=== PATIENT | female | born 2000 | race Caucasian/White ===

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

== ENCOUNTER → 2021-07-31 11:40 | Outpatient (CLI) | payer BC, OTHER, SELFPAY ==
[2021-07-31 15:27] LABS: COVID19 -Nasal RAPID Negative (Negative)
== END ==
PROVIDERS: PCP Pediatrics; Referring Provider Physician Assistant; Visit Provider Physician Assistant
DX: Z20.822 Contact with and (suspected) exposure to COVID-19 (principal); J02.9 Acute pharyngitis, unspecified; R52 Pain, unspecified
CPT/HCPCS: 87635

== ENCOUNTER → 2022-02-22 17:47 | Outpatient (CLI) | payer BC, OTHER, SELFPAY ==
--- NOTE | 2022-02-22 17:55 | DI.RAD.S_ITS ---
PROCEDURE: XR FOOT LT MIN 3V INDICATIONS: left foot pain TECHNIQUE: 3 views of the foot were acquired. COMPARISON: None. FINDINGS: Bones: No fractures or dislocations. No suspicious bony lesions. Soft tissues: No tibiotalar joint effusion. Achilles tendon appears normal. IMPRESSION: Unremarkable radiographic examination of left foot. Dictated by: Dougie Reina M.D. on 02/22/2022 at 18:15 Approved by: Dougie Reina M.D. on 02/22/2022 at 18:15
== END ==
PROVIDERS: Referring Provider Nurse Practitioner Family; Visit Provider Nurse Practitioner Family
DX: M79.672 Pain in left foot (principal)
CPT/HCPCS: 73630

== ENCOUNTER → 2023-02-20 16:42 | Outpatient (CLI) | payer BC, SELFPAY ==
--- NOTE | 2023-02-20 17:14 | DI.RAD.S_ITS ---
PROCEDURE: XR RIBS RT MIN 3V W CXR 1V INDICATIONS: rt rib pain;extra rib on right side TECHNIQUE: 2 views of the right ribs were acquired, along with a single view chest. COMPARISON: None. FINDINGS: Surgical changes and devices: None. Bones and chest wall: No fractures or dislocations. No suspicious bony lesions. Overlying soft tissues appear unremarkable. Lungs and pleura: No pleural effusions or pneumothorax. Lungs appear clear. Mediastinum: Mediastinal contours appear normal. Heart size is normal. IMPRESSION: No gross displaced right rib fracture. No acute cardiopulmonary pathology. Dictated by: Dougie Reina M.D. on 02/21/2023 at 15:32 Approved by: Dougie Reina M.D. on 02/21/2023 at 15:32
== END ==
PROVIDERS: PCP Internal Medicine; Referring Provider Internal Medicine; Visit Provider Internal Medicine
DX: R07.81 Pleurodynia (principal)
CPT/HCPCS: 71101

== ENCOUNTER → 2023-08-30 16:55 | Outpatient (CLI) | payer BC, SELFPAY ==
[2023-08-30 17:20] LABS: Hematocrit 40.6 % (36-46); Hemoglobin 13.9 g/dL (12.0-16.0); Mean Corpuscular HGB Conc 34.3 % (30-36); Mean Corpuscular Hemoglobin 30.9 PG (26-34); Mean Corpuscular Volume 89.9 fL (80-100); Platelet Count 229 X10^3/uL (150-400); Red Blood Cell Count 4.51 X10^6/uL (4.0-5.2); Red Cell Distribution Width 13.1 % (11.6-14.8); White Blood Cell Count 7.2 X10^3/uL (4.5-11.0)
[2023-08-30 17:42] LABS: Erythrocyte Sedimentation Rate 14 MM/HR (0-20)
[2023-08-30 17:52] LABS: Alanine Aminotransferase 27 IU/L (<35); Albumin 4.4 g/dL (3.5-5.0); Albumin Globulin Ratio 1.5 (1.0-2.8); Alkaline Phosphatase 67 U/L (38-126); Aspartate Aminotransferase 25 IU/L (14-36); BUN Creatinine Ratio 17.5 (6-22); Bilirubin Total 0.5 mg/dL (0.2-1.3); Blood Urea Nitrogen 14 mg/dL (7-17); C-Reactive Protein Quant < 0.5 mg/dL (<1.0); Calcium 10.1 mg/dL (8.4-10.2); Carbon Dioxide 30 mmol/L (22-32); Chloride 103 mmol/L (98-107); Estimated Glomerular Filt Rate > 60 mL/min (>60); Glucose 98 mg/dL (70-100); HEMOLYSIS < 15 (0-50); Potassium 4.2 mmol/L (3.4-5.1); Sodium 139 mmol/L (137-145); Total Protein 7.4 g/dL (6.3-8.2)
[2023-09-04 17:56] LABS: ANA Screen, IFA Negative (.)
== END ==
PROVIDERS: PCP Internal Medicine; Referring Provider Internal Medicine; Visit Provider Internal Medicine
DX: M32.9 Systemic lupus erythematosus, unspecified (principal)
CPT/HCPCS: 36415; 80053; 85027; 85651; 86038; 86140

== ENCOUNTER 2023-11-06 14:30 | Emergency (ER) | payer BC, SELFPAY ==
[2023-11-06 14:50] VITALS: BP 142/76; PULSE 124; RESP 16; TEMP 37.1; O2SAT 99; BMI 20.7
--- NOTE | 2023-11-06 15:13 | DI.RAD.S_ITS ---
PROCEDURE: XR TIBIA FUBULA RT 2V INDICATIONS: fall, pain, deformity TECHNIQUE: 2 views of the tibia and fibula were acquired. COMPARISON: [facility], CR, XR FOOT RT MIN 3V, 11/06/2023, 15:16. [facility], CR, XR ANKLE RT MIN 3V, 11/06/2023, 15:16. FINDINGS: Bones: Mildly displaced comminuted distal fibular fracture. Tibiotalar joint space is maintained. There is no gross widening at the syndesmosis. Soft tissues: No suspicious soft tissue calcifications or masses. IMPRESSION: Mildly displaced comminuted distal fibular fracture. Dictated by: Luli Bazan M.D. on 11/06/2023 at 15:48 Approved by: Luli Bazan M.D. on 11/06/2023 at 15:50
--- NOTE | 2023-11-06 15:13 | DI.RAD.S_ITS ---
PROCEDURE: XR FOOT RT MIN 3V INDICATIONS: fall, pain, deformity TECHNIQUE: 3 views of the foot were acquired. COMPARISON: [facility], CR, XR FOOT LT MIN 3V, 02/22/2022, 17:43. [facility], CR, XR ANKLE RT MIN 3V, 11/06/2023, 15:16. FINDINGS: Bones: Comminuted minimally displaced distal fibular fracture.. No suspicious bony lesions. Soft tissues: No tibiotalar joint effusion. Achilles tendon appears normal. IMPRESSION: Comminuted minimally displaced distal fibular fracture. Dictated by: Luli Bazan M.D. on 11/06/2023 at 15:47 Approved by: Luli Bazan M.D. on 11/06/2023 at 15:48
--- NOTE | 2023-11-06 15:13 | DI.RAD.S_ITS ---
PROCEDURE: XR ANKLE RT MIN 3V INDICATIONS: fall, pain, deformity TECHNIQUE: 3 views of the ankle were acquired. COMPARISON: [facility], CR, XR FOOT RT MIN 3V, 11/06/2023, 15:16. [facility], CR, XR TIBIA FIBULA RT 2V, 11/06/2023, 15:16. FINDINGS: Bones: Mildly displaced comminuted distal fibular fracture. No gross widening at the syndesmosis. Soft tissues: No tibiotalar joint effusion. Achilles tendon appears normal. IMPRESSION: Mildly displaced comminuted distal fibular fracture. Dictated by: Luli Bazan M.D. on 11/06/2023 at 15:50 Approved by: Luli Bazan M.D. on 11/06/2023 at 15:50
[2023-11-06] MEDS: ACETAMINOPHEN 325 MG TABLET 975 MG PO (15:16)
--- NOTE | 2023-11-06 15:17 | ED_ITS ---
HPI - Extremity Injury (Lower) <Luanne Davenport PA-C - Last Filed: 11/07/23 19:35> General Chief Complaint: Extremity Injury, Lower Stated Complaint: fell, r ankle injury Time Seen by Provider: 11/06/23 15:10 Mode of arrival: Family Vehicle History of Present Illness HPI Narrative: 22-year-old female hx of hypermobile joints, chillblains. presents with concern for severe right ankle pain nonambulatory since she slipped and fell recently when she was running to her car across her sloped driveway. She had her right foot on the uphill side and was wearing tennis shoes. She is here today with her mother. States she can not move her toes, unsure if this is due to pain or inability to do so. She does note that her right middle toe has a purplish appearance which is baseline and normal for her that is unchanged. Patient states she has not attempted to bear weight on the foot/ankle since this happened. She endorses pain in her foot ankle and lower leg; mostly of her right ankle. She denies knee pain. She denies hitting her head loss of consciousness or any other injury. No hx of previous fracture or injury to right ankle. Patient denies any chance of . Related Data Previous Rx's Medication Instructions Recorded levonorgestrel 14 mcg/24 hrs (3 1 device intrauterine ONCE #1 ea 04/01/23 yrs) 13.5 mg intrauterine device (Demetrice) hydroxyzine HCl 25 mg tablet 25 mg PO DAILY PRN itching #90 tabs 06/19/23 methylphenidate HCl 36 mg 72 mg (2 x 36 mg) PO DAILY #60 tabs 08/30/23 tablet,extended release 24 hr methylphenidate HCl 36 mg 72 mg (2 x 36 mg) PO DAILY #60 tabs 08/30/23 tablet,extended release 24 hr methylphenidate HCl 36 mg 72 mg (2 x 36 mg) PO DAILY #60 tabs 08/30/23 tablet,extended release 24 hr Allergies Allergy/AdvReac Type Severity Reaction Status Date / Time banana [BANANA] Allergy Mild Verified 11/06/23 15:06 yanely Allergy Mild rash/itchy Verified 11/06/23 15:06 throat melon [MELON] Allergy Mild rash/itchy Verified 11/06/23 15:06 throat watermelon Allergy Mild rash/itchy Verified 11/06/23 15:06 throat kiwi Allergy Mild Uncoded 11/06/23 15:06 Review of Systems <Luanne Davenport PA-C - Last Filed: 11/07/23 19:35> Review of Systems Narrative: See HPI Patient History <Luanne Davenport PA-C - Last Filed: 11/07/23 19:35> Medical History Chilblain Chronic low back pain Eczema Acne (~2020) Major depressive disorder Attention deficit hyperactivity disorder (ADHD), 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 Well-developed patient, in mild distress. HEAD: Atraumatic. Normocephalic. EYES: Pupils equal round and reactive. Extraocular motions intact. No scleral icterus. No injection or drainage. ENT: Nose without bleeding, purulent drainage. Airway patent. NECK: Trachea midline. Non tender CARDIOVASCULAR: Regular rate and rhythm without murmurs, gallops, or rubs. RESPIRATORY: Clear to auscultation. Breath sounds equal bilaterally. No wheezes, rales, or rhonchi. GASTROINTESTINAL: Abdomen soft, non-tender, nondistended. EXTREMITIES: ROM of the ankle and toes of the right affected foot is extremely reduced 2nd to pain and swelling. There is significant swelling about the lateral malleolus and ankle, patient has tenderness with palpation of the proximal fibula increasing with palpation inferiorly. Significant tenderness with palpation of the lateral malleolus. There is no erythema or broken skin or tenting. No other edema or joint tenderness. Sensation is intact, pedal pulses are intact. BACK: Nontender without deformity or crepitance. No flank tenderness. NEURO: AOx3. SKIN: No rash or erythema of visible areas Initial Vital Signs Initial Vital Signs: Vital Signs Temperature 98.7 F 11/06/23 14:50 Pulse Rate 124 H 11/06/23 14:50 Respiratory Rate 16 11/06/23 14:50 Blood Pressure 142/76 H 11/06/23 14:50 Pulse Oximetry 99 11/06/23 14:50 Oxygen Delivery Method Room Air 11/06/23 14:50 <Betty Sotelo DO - Last Filed: 11/09/23 07:50> Initial Vital Signs Initial Vital Signs: Vital Signs Temperature 98.7 F 11/06/23 14:50 Pulse Rate 124 H 11/06/23 14:50 Respiratory Rate 16 11/06/23 14:50 Blood Pressure 142/76 H 11/06/23 14:50 Pulse Oximetry 99 11/06/23 14:50 Oxygen Delivery Method Room Air 11/06/23 14:50 Course <Luanne Davenport PA-C - Last Filed: 11/07/23 19:35> Orders Ordered: Discontinued Medications Acetaminophen (Acetaminophen 325 Mg Tablet) 975 mg PO NOW ONE Stop: 11/06/23 15:12 Last Admin: 11/06/23 15:16 Dose: 975 mg Documented By: SUE Ibuprofen (Ibuprofen 400 Mg Tablet) 400 mg PO NOW ONE Stop: 11/06/23 15:12 Last Admin: 11/06/23 15:16 Dose: Not Given Documented By: SUE Ketorolac Tromethamine (Ketorolac 30 Mg/Ml Vial) 30 mg IM NOW ONE Stop: 11/06/23 15:16 Last Admin: 11/06/23 15:21 Dose: 30 mg Documented By: SUE Consultations Consultation #1: Spoke with Dr. Velarde, orthopedic on-call who states this may be surgical but unsure yet, agrees with plan for sugar-tong with posterior slab and crutches and will see her in clinic. 1605 Vital Signs Vital signs: Vital Signs - 8 hr 11/06/23 14:50 11/06/23 17:14 Temperature 98.7 F Pulse Rate 124 H 106 H Respiratory Rate 16 20 Blood Pressure 142/76 H 134/77 Pulse Oximetry 99 100 Oxygen Delivery Method Room Air Room Air <Betty Sotelo DO - Last Filed: 11/09/23 07:50> Orders Ordered: Discontinued Medications Acetaminophen (Acetaminophen 325 Mg Tablet) 975 mg PO NOW ONE Stop: 11/06/23 15:12 Last Admin: 11/06/23 15:16 Dose: 975 mg Documented By: RL Ibuprofen (Ibuprofen 400 Mg Tablet) 400 mg PO NOW ONE Stop: 11/06/23 15:12 Last Admin: 11/06/23 15:16 Dose: Not Given Documented By: RL Ketorolac Tromethamine (Ketorolac 30 Mg/Ml Vial) 30 mg IM NOW ONE Stop: 11/06/23 15:16 Last Admin: 11/06/23 15:21 Dose: 30 mg Documented By: RL Vital Signs Vital signs: Vital Signs - 8 hr 11/06/23 14:50 11/06/23 17:14 Temperature 98.7 F Pulse Rate 124 H 106 H Respiratory Rate 16 20 Blood Pressure 142/76 H 134/77 Pulse Oximetry 99 100 Oxygen Delivery Method Room Air Room Air MDM - Extremity Injury (Lower) <Luanne Davenport PA-C - Last Filed: 11/07/23 19:35> Differential Diagnosis Differential diagnosis: Likely ankle sprain and strain and ankle fracture Imaging Data Extremity x-ray #1: My Impression: Agree with Radiology interpretation Radiologist's Impression: [address] [address] XRay Report Signed Patient: Aster Palma MR#: [id number] : 2000 Acct:[id number] Age/Sex: 22 / F Date of Service: 11/06/23 Loc: ED Accession Number: [id number] Procedure: XR ankle RT min 3V Ordering Provider: Luanne Davenport P.A-C PROCEDURE: XR ANKLE RT MIN 3V INDICATIONS: fall, pain, deformity TECHNIQUE: 3 views of the ankle were acquired. COMPARISON: [facility], CR, XR FOOT RT MIN 3V, 11/06/2023, 15:16. [facility], CR, XR TIBIA FIBULA RT 2V, 11/06/2023, 15:16. FINDINGS: Bones: Mildly displaced comminuted distal fibular fracture. No gross widening at the syndesmosis. Soft tissues: No tibiotalar joint effusion. Achilles tendon appears normal. IMPRESSION: Mildly displaced comminuted distal fibular fracture. Dictated by: Luli Bazan M.D. on 11/06/2023 at 15:50 Approved by: Luli Bazan M.D. on 11/06/2023 at 15:50 Extremity x-ray #2: My Impression: Agree with Radiology interpretation Radiologist's Impression: [address] [address] XRay Report Signed Patient: Aster Palma MR#: [id number] : 2000 Acct:[id number] Age/Sex: 22 / F Date of Service: 11/06/23 Loc: ED Accession Number: [id number] Procedure: XR foot RT min 3V Ordering Provider: Luanne Davenport P.A-C PROCEDURE: XR FOOT RT MIN 3V INDICATIONS: fall, pain, deformity TECHNIQUE: 3 views of the foot were acquired. COMPARISON: [facility], CR, XR FOOT LT MIN 3V, 02/22/2022, 17:43. [facility], CR, XR ANKLE RT MIN 3V, 11/06/2023, 15:16. FINDINGS: Bones: Comminuted minimally displaced distal fibular fracture.. No suspicious bony lesions. Soft tissues: No tibiotalar joint effusion. Achilles tendon appears normal. IMPRESSION: Comminuted minimally displaced distal fibular fracture. Dictated by: Luli Bazan M.D. on 11/06/2023 at 15:47 Approved by: Luli Bazan M.D. on 11/06/2023 at 15:48 Extremity x-ray #3: My Impression: Agree with Radiology interpretation Radiologist's Impression: [address] [address] XRay Report Signed Patient: Aster Palma MR#: [id number] : 2000 Acct:[id number] Age/Sex: 22 / F Date of Service: 11/06/23 Loc: ED Accession Number: [id number] Procedure: XR tibia fibula RT 2V Ordering Provider: Luanne Davenport P.A-C PROCEDURE: XR TIBIA FUBULA RT 2V INDICATIONS: fall, pain, deformity TECHNIQUE: 2 views of the tibia and fibula were acquired. COMPARISON: [facility], CR, XR FOOT RT MIN 3V, 11/06/2023, 15:16. [facility], CR, XR ANKLE RT MIN 3V, 11/06/2023, 15:16. FINDINGS: Bones: Mildly displaced comminuted distal fibular fracture. Tibiotalar joint space is maintained. There is no gross widening at the syndesmosis. Soft tissues: No suspicious soft tissue calcifications or masses. IMPRESSION: Mildly displaced comminuted distal fibular fracture. Dictated by: Luli Bazan M.D. on 11/06/2023 at 15:48 Approved by: Luli Bazan M.D. on 11/06/2023 at 15:50 [facility] Narrative Medical decision making narrative: Is a well-appearing 22-year-old female who comes in with severe ankle pain after rolling her ankle while running across her driveway. Isolated ankle injury. Her exam is concerning for fracture, x-rays returned positive for distal tibial fracture that is slightly comminuted but well aligned. Discussed the patient with Dr. Velarde, on-call physician in orthopedics who agrees to see the patient in clinic, she is splinted in posterior slab with stirrup provided with crutches advised to be nonweightbearing. Patient has improved movement of toes after splinting. Re-evaluated before and after splinting with good result. Patient declines any strong pain medicines and will use Tylenol and Advil at home for pain. Advised regarding RI CE Return precautions provided, follow-up plan discussed, all questions answered. Discharge Plan Departure Patient Disposition: Home Clinical Impression: Ankle fracture, right Qualifiers: Encounter type: initial encounter Fracture type: closed Qualified Code(s): S 82.891A - Other fracture of right lower leg, initial encounter for closed fracture Fall Qualifiers: Encounter type: initial encounter Qualified Code(s): W19.XXXA - Unspecified fall, initial encounter Activity Restrictions/Additional Instructions: *You have been diagnosed with [ankle fracture (distal tibia fracture)] *What to do: *Please continue to take your regular medications as directed. [ ] New medication prescriptions sent to your pharmacy: [ ] [ ] New medication written as a paper prescription [ X] No new medications given *Please follow up with your primary care provider in 2-3 days, call for an appointment. Let them know you were seen in the Emergency Department and that we ask that you be seen in follow up. We will electronically transmit a record of today's note if your PCP is in our system. Unfortunately you broke your distal tibia which is the end of the small bone on the outside of your leg and you broke it just above the ankle. In talking with orthopedic provider on-call today he has not sure yet whether or not you will need any surgical intervention or whether it is possible that this may heal okay without that. You will need to follow up with him in clinic, we put you in a splint today and you need to be nonweightbearing completely, use the crutches I recommend elevation of her leg to help with pain and discomfort as well as Tylenol and Advil or ibuprofen as we discussed. Dr. Velarde--orthopedic surgeon's contact his below. Call his clinic in the morning to check in regarding timing of your clinic appointment scheduling. Monitor for skin color changes, increasing pain of your injured foot/ankle. I hope you feel better soon. *If you do not have a primary care provider please contact the [facility] Resource line at [phone]. They will ask some questions about your medical history and help get you set up with a doctor in the community. *Return to Emergency Department if you should have any new, worsening or concerning symptoms, such as [fever greater than 101 F, shaking chills, worsening pain, persistent vomiting or other bothersome symptoms] Prescriptions: No Action Demetrice 14 mcg/24 hrs (3 yrs) 13.5 mg intrauterine device 1 device intrauterine ONCE Qty: 1 0RF hydroxyzine HCl 25 mg tablet 25 mg PO DAILY PRN (Reason: itching) Qty: 90 3RF methylphenidate HCl 36 mg tablet extended release 24hr 72 mg PO DAILY Qty: 60 0RF methylphenidate HCl 36 mg tablet extended release 24hr 72 mg PO DAILY Qty: 60 0RF methylphenidate HCl 36 mg tablet extended release 24hr 72 mg PO DAILY Qty: 60 0RF Referrals: Ayo Velarde MD [Physician] - (Distal tibia fx, comminuted) Jaden Carrasquillo MD [Primary Care Provider] - Stand Alone Forms: Patient Portal/API ED Sign-out <Betty Sotelo DO - Last Filed: 11/09/23 07:50> Cosign ED Attending Cosignature Attestation: I was available for consultation.
[2023-11-06] MEDS: KETOROLAC 30 MG/ML VIAL IM (15:21)
[2023-11-06 17:14] VITALS: BP 134/77; PULSE 106; RESP 20; O2SAT 100
== END 2023-11-06 17:15 | disposition home or self-care (01) ==
PROVIDERS: Emergency Provider Student in an Organized Health Care Education/Training Program; PCP Internal Medicine
DX: S82.891A Other fracture of right lower leg, initial encounter for closed fracture (principal); W01.0XXA Fall on same level from slipping, tripping and stumbling without subsequent striking against object, initial encounter
CPT/HCPCS: 73590; 73610; 73630; 96372; 99283; 99284; J1885

== ENCOUNTER → 2024-02-15 09:20 | Outpatient (CLI) | payer BC, SELFPAY | PROVIDERS: PCP Internal Medicine; Visit Provider Registered Nurse | DX: R30.0 Dysuria (principal) | CPT/HCPCS: 87077; 87086; 87186 ==